=== PATIENT | female | born 1935 | race Caucasian/White ===

== ENCOUNTER 2019-11-29 09:36 | Day surgery (SDC) | payer MEDICARE ==
[2019-11-28 16:37] LABS: BASOPHILS % (AUTO) 0.3 % (0.0-5.0); EOSINOPHILS % (AUTO) 1.6 % (0.0-8.0); LYMPHOCYTES % (AUTO) 41.8 % (21.0-51.0); MEAN CORPUSCULAR HEMOGLOBIN 29.8 pg (27.0-33.0); MEAN CORPUSCULAR HGB CONC 30.8 g/dL (32.0-36.0); MEAN CORPUSCULAR VOLUME 96.7 fL (79-99); MONOCYTES % (AUTO) 4.7 % (3.0-13.0); NEUTROPHILS % (AUTO) 51.3 % (40.0-77.0); PLATELET COUNT (AUTO) 301 K/uL (130-400); RED BLOOD CELL COUNT(AUTO) 3.93 MIL/uL (4.00-5.50); RED CELL DISTRIBUTION WIDTH 13.3 % (11.0-15.5); WHITE BLOOD COUNT (AUTO) 7.9 K/uL (4.8-10.8)
[2019-11-28 16:49] VITALS: BP 112/58
[2019-11-28 16:56] LABS: CREATININE 1.5 mg/dL (0.5-1.5); POTASSIUM 4.8 mmol/L (3.5-5.1)
--- NOTE | 2019-11-28 20:35 | NUR ---
CALLED DR. SILVIA V AND HE IS AWARE OF ABNORMAL LABS AND X-RAY NO NEW ORDERS AT THIS TIME. OK TO PROCEED WITH PROCEDURE.
[2019-11-29] VITALS (23 sets, daily range): BP systolic 88–120; BP diastolic 41–97
[~2019-11-29] VITALS: Ht 165.1 cm; Wt 70.3 kg
[~2019-11-29 09:36] MED LIST: APIX5TAB PO; BIMA12.5OS OU; FURO20TA4 PO; FURO40TA5 PO; GABA600T10 PO; IBUP-2784 PO; INSLAN SQ; LEVO75TA10 PO; [UNRECOGNIZED DRUG - CODE] PO
[2019-11-29] MEDS ORDERED: SODIUM CHLORIDE 0.9% 1000ML 1,000 ML IV ONE (10:28)
[2019-11-29] MEDS ORDERED: ROCURONIUM 10MG/1ML SYR 10 MG/ML ML ONE (12:37)
[2019-11-29] MEDS ORDERED: PROPOFOL 10 MG/ML 20ML VIAL IV ONE (12:37)
[2019-11-29] MEDS ORDERED: LIDOCAINE PF 2% 5ML ABBOJECT ONE (12:37)
[2019-11-29] MEDS ORDERED: FENTANYL CITRATE PF 50 MCG/1 ML 5ML AMP IV ONE (12:38)
[2019-11-29] MEDS ORDERED: ROPIVACAINE 0.5% 5MG/ML 30ML IJ ONE (12:44)
[2019-11-29] MEDS: CLINDAMYCIN 900 MG/D5% WATER 50 ML IV PRN ×2 (13:00→13:32)
[2019-11-29] MEDS ORDERED: EPHEDRINE SULFATE 50 MG/ML AMPULE ONE (13:04)
[2019-11-29] MEDS ORDERED: NEOSTIGMINE 5MG/5ML SYR IV ONE (13:42)
[2019-11-29] MEDS ORDERED: ONDANSETRON HCL 4 MG/2 ML VIAL ONE (13:42)
[2019-11-29] MEDS ORDERED: GLYCOPYRROLATE 1 MG/5 ML SYRINGE ONE (13:42)
[2019-11-29] MEDS ORDERED: DEXAMETHASONE SOD PHOSPHATE 10MG/ML 1ML VIAL ONE (13:42)
[2019-11-29] MEDS ORDERED: SUGAMMADEX SODIUM 200 MG/2 ML VIAL IV ONE (14:05)
--- NOTE | 2019-11-29 15:40 | NUR ---
PT ARRIVED TO THE UNIT WITH BRUISE TO LEFT EYELID AND RIGHT EYELID HOWEVER MORE PROMINENT TO THE LEFT EYES, PER PATIENT FAMILY SHE DID NOT HAVE IT WHEN SHE CAME TO HOSPITAL, PER FAMILY STAFF ADVISED HER THAT SHE GOT IT WHEN THEY TAPED HER EYE FOR PROCEDURE. ADVISED NURSE [employer] GILBERT LINN
== END 2019-11-29 16:47 | disposition home or self-care (01) ==
LOC: DAH 09:36
PROVIDERS: ATTEND Orthopaedic Surgery
DX: S52.021A Displaced fracture of olecranon process without intraarticular extension of right ulna, initial encounter for closed fracture (principal); M81.8 Other osteoporosis without current pathological fracture; Z88.2 Allergy status to sulfonamides; E11.9 Type 2 diabetes mellitus without complications; E03.9 Hypothyroidism, unspecified; I48.91 Unspecified atrial fibrillation; I45.10 Unspecified right bundle-branch block; Z79.899 Other long term (current) drug therapy; Z72.89 Other problems related to lifestyle; Z83.3 Family history of diabetes mellitus; Z90.49 Acquired absence of other specified parts of digestive tract; Z98.41 Cataract extraction status, right eye; Z98.42 Cataract extraction status, left eye; X58.XXXA Exposure to other specified factors, initial encounter; Y93.89 Activity, other specified; Y92.89 Other specified places as the place of occurrence of the external cause; Y99.9 Unspecified external cause status
CPT/HCPCS: 24685; 36415; 64415; 71045; 73080; 76942; 80048; 82948 ×2; 85025; 93005; A4215; A4221; A4222; A4223; A4649 ×4; A4663; A4930; A6223; A6260; C1713 ×4; C1776; J1100; J2001; J2405; J2704; J2710; J2795; J3010; J3490 ×3; J7030 ×2; Q4050

== ENCOUNTER 2020-11-29 10:52 | Inpatient (IN) | payer MEDICARE ==
[~2020-11-29] VITALS: Ht 165.1 cm; Wt 73.0 kg
[~2020-11-29 10:52] MED LIST changes: +DILT-116 PO; -[UNRECOGNIZED DRUG - CODE] PO
[2020-11-29] MEDS ORDERED: TETANUS/DIPHTHERIA TOXOID [ADULT] 0.5 ML VIAL IM ONE (12:41)
[2020-11-29 12:47] LABS: BASOPHILS % (AUTO) 0.2 % (0.0-5.0); EOSINOPHILS % (AUTO) 0.3 % (0.0-8.0); LYMPHOCYTES % (AUTO) 24.8 % (21.0-51.0); MEAN CORPUSCULAR HEMOGLOBIN 30.7 pg (27.0-33.0); MEAN CORPUSCULAR HGB CONC 31.5 g/dL (32.0-36.0); MEAN CORPUSCULAR VOLUME 97.6 fL (79-99); MONOCYTES % (AUTO) 4.6 % (3.0-13.0); NEUTROPHILS % (AUTO) 69.9 % (40.0-77.0); PLATELET COUNT (AUTO) 173 K/uL (130-400); RED CELL DISTRIBUTION WIDTH 14.1 % (11.0-15.5); WHITE BLOOD COUNT (AUTO) 10.6 K/uL (4.8-10.8)
[2020-11-29 12:51] LABS: CREATININE 1.7 mg/dL (0.5-1.5); POTASSIUM 4.5 mmol/L (3.5-5.1)
[2020-11-29 12:55] LABS: INR 0.94 (0.85-1.15); PROTHROMBIN TIME 10.3 SEC (9.6-11.6)
[2020-11-29 12:56] LABS: ALBUMIN 3.5 g/dL (3.5-5.0); BILIRUBIN,TOTAL 0.8 mg/dL (0.2-1.0); PARTIAL THROMBOPLASTIN TIME 22.1 SEC (26.3-35.5); TOTAL PROTEIN, SERUM 6.9 g/dL (6.0-8.3)
[2020-11-29] MEDS ORDERED: AZITHROMYCIN 500MG+NS 250ML 250 ML IV ONE (13:01)
[2020-11-29] MEDS ORDERED: CEFTRIAXONE 1G VIAL ONE (13:02)
[2020-11-29] MEDS: 0.9%NACL 1000ML 1,000 ML IV SCH ×2 (13:15→21:39)
[2020-11-29] MEDS ORDERED: POTASSIUM CHLORIDE 20MEQ/100ML 100 ML IV PRN ×2 (13:15)
[2020-11-29] MEDS ORDERED: KCL 20 MEQ ERTAB PO PRN (13:15)
[2020-11-29] MEDS ORDERED: POTASSIUM CHLORIDE 10% ELIXIR 20 MEQ/15 ML UDCUP PO PRN (13:15)
[2020-11-29] MEDS ORDERED: MAGNESIUM 2GM PREMIX 50ML 50 ML IV PRN (13:15)
[2020-11-29] MEDS: FAMOTIDINE 20MG VIAL IV SCH ×2 (13:15→21:40)
[2020-11-29] MEDS ORDERED: DEXTROSE 50%-WATER 50 ML DISP.SYRIN IV PRN (13:15)
[2020-11-29] MEDS: ENOXAPARIN SODIUM 40 MG/0.4 ML SYRINGE SQ SCH (13:15)
[2020-11-29] MEDS ORDERED: GLUCAGON 1MG KIT 1 MG ML IM PRN (13:15)
[2020-11-29] MEDS ORDERED: LIDOCAINE HCL-MPF 1% 2ML VIAL IV PRN ×2 (13:15)
[2020-11-29] MEDS ORDERED: ENOXAPARIN SODIUM 40 MG/0.4 ML SYRINGE SQ ONE (14:19)
[2020-11-29] MEDS ORDERED: 0.9%NACL 1000ML 1,000 ML IV ONE (14:20)
[2020-11-29] MEDS ORDERED: FAMOTIDINE 20MG VIAL IV ONE (14:20)
[2020-11-29 19:13] LABS: APPEARANCE,URINE Clear (CLEAR); BILIRUBIN,URINE Negative (NEGATIVE); COLOR,URINE Yellow (YELLOW); GLUCOSE, URINE (UA) >=1000 mg/dL (NEGATIVE); KETONES,URINE Trace mg/dL (NEGATIVE); LEUKOCYTE ESTERASE ,URINE Negative (NEGATIVE); NITRATE,URINE Negative (NEGATIVE); OCCULT BLOOD,URINE Negative (NEGATIVE); PH,URINE 5.5 (5.0-8.0); PROTEIN,URINE Negative (NEGATIVE)
[2020-11-29 19:19] LABS: BACTERIA,URINE Rare /HPF (None Seen); RBC,URINE 0-1 /HPF (0-1); WBC,URINE 0-1 /HPF (0-1)
[2020-11-29 19:20] LABS: SQUAMOUS EPITHELIAL CELL,UR Rare /HPF (0-2)
[2020-11-29 22:06] VITALS: BP 115/52
[2020-11-30 00:24] VITALS: BP 120/57
[2020-11-30] MEDS ORDERED: INSLAN SQ (02:31)
[2020-11-30] MEDS ORDERED: ACET1TAB25 PO (02:31)
[2020-11-30 04:24] VITALS: BP 117/50
[2020-11-30 05:09] LABS: HEMATOCRIT 33.3 % (36-48); MEAN CORPUSCULAR HEMOGLOBIN 30.3 pg (27.0-33.0); MEAN CORPUSCULAR HGB CONC 30.9 g/dL (32.0-36.0); MEAN CORPUSCULAR VOLUME 97.9 fL (79-99); RED BLOOD CELL COUNT(AUTO) 3.4 MIL/uL (4.00-5.50); RED CELL DISTRIBUTION WIDTH 14.2 % (11.0-15.5); WHITE BLOOD COUNT (AUTO) 7.8 K/uL (4.8-10.8)
[2020-11-30 05:32] LABS: PROTHROMBIN TIME 10.9 SEC (9.6-11.6)
[2020-11-30 05:42] LABS: CREATINE KINASE, TOTAL 217 U/L (21-232); MYOGLOBIN 286 ng/mL (10-92); TROPONIN I < 0.04 ng/mL (0.00-0.06)
[2020-11-30 06:03] LABS: CARBON DIOXIDE 26 mmol/L (21-32); CHLORIDE 105 mmol/L (101-111); CREATININE 1.2 mg/dL (0.5-1.5); GLOMERULAR FILTR. RATE CALC 45 mL/min (>60); GLUCOSE,RANDOM 215 mg/dL (70-105); POTASSIUM 3.8 mmol/L (3.5-5.1); SODIUM SERUM 142 mmol/L (136-145); THYROID STIMULATING HORMONE 0.74 uIU/mL (0.36-3.74); UREA NITROGEN, BLOOD 25 mg/dL (7-18)
[2020-11-30] MEDS: MORPHINE 2 MG SYG IVP PRN ×2 (07:02→14:40)
[2020-11-30 08:04] VITALS: BP 103/50
[2020-11-30] MEDS: FAMOTIDINE 20MG VIAL IV SCH ×2 (08:24→20:30)
[2020-11-30] MEDS: ENOXAPARIN SODIUM 40 MG/0.4 ML SYRINGE SQ SCH (08:25)
[2020-11-30 10:59] VITALS: BP 112/70
[2020-11-30 16:20] VITALS: BP 101/56
[2020-11-30] MEDS: 0.9%NACL 1000ML 1,000 ML IV SCH (16:46)
[2020-11-30 19:33] VITALS: BP 106/47
[2020-11-30] MEDS ORDERED: INSULIN HUMULIN R 100 UNIT/ML 3ML ONE (21:22)
[2020-11-30] MEDS: INSULIN HUMULIN R 100 UNIT/ML 3ML SQ SCH (21:30)
[2020-11-30] MEDS ORDERED: DEXTROSE 50%-WATER 50 ML DISP.SYRIN IV PRN (21:30)
[2020-11-30] MEDS ORDERED: GLUCAGON 1MG KIT 1 MG ML IM PRN (21:30)
[2020-12-01] VITALS (7 sets, daily range): BP systolic 94–111; BP diastolic 45–57
[2020-12-01] MEDS: 0.9%NACL 1000ML 1,000 ML IV SCH ×2 (06:25→18:37)
[2020-12-01] MEDS: INSULIN HUMULIN R 100 UNIT/ML 3ML SQ SCH ×4 (06:27→21:17)
[2020-12-01 06:50] LABS: HEMATOCRIT 34.7 % (36-48); MEAN CORPUSCULAR HEMOGLOBIN 30.7 pg (27.0-33.0); MEAN CORPUSCULAR HGB CONC 31.1 g/dL (32.0-36.0); MEAN CORPUSCULAR VOLUME 98.6 fL (79-99); RED BLOOD CELL COUNT(AUTO) 3.52 MIL/uL (4.00-5.50); WHITE BLOOD COUNT (AUTO) 6.5 K/uL (4.8-10.8)
[2020-12-01 07:08] LABS: CREATININE 1.3 mg/dL (0.5-1.5); MAGNESIUM 2.1 mg/dL (1.80-2.40)
[2020-12-01] MEDS: ENOXAPARIN SODIUM 40 MG/0.4 ML SYRINGE SQ SCH (09:00)
[2020-12-01] MEDS: FAMOTIDINE 20MG VIAL IV SCH ×2 (09:33→21:16)
[2020-12-01] MEDS: MORPHINE 2 MG SYG IVP PRN (18:18)
[2020-12-02] VITALS (30 sets, daily range): BP systolic 79–126; BP diastolic 40–88
[2020-12-02 06:17] LABS: HEMATOCRIT 34.4 % (36-48); MEAN CORPUSCULAR HEMOGLOBIN 30.3 pg (27.0-33.0); MEAN CORPUSCULAR HGB CONC 31.4 g/dL (32.0-36.0); MEAN CORPUSCULAR VOLUME 96.6 fL (79-99); RED BLOOD CELL COUNT(AUTO) 3.56 MIL/uL (4.00-5.50); RED CELL DISTRIBUTION WIDTH 14.2 % (11.0-15.5); WHITE BLOOD COUNT (AUTO) 7.1 K/uL (4.8-10.8)
[2020-12-02] MEDS: INSULIN HUMULIN R 100 UNIT/ML 3ML SQ SCH ×4 (06:24→21:00)
[2020-12-02 06:29] LABS: CREATININE 1.3 mg/dL (0.5-1.5); POTASSIUM 3.3 mmol/L (3.5-5.1)
[2020-12-02] MEDS: 0.9%NACL 1000ML 1,000 ML IV SCH ×2 (08:33→20:50)
[2020-12-02] MEDS: ENOXAPARIN SODIUM 40 MG/0.4 ML SYRINGE SQ SCH (09:00)
[2020-12-02] MEDS: FAMOTIDINE 20MG VIAL IV SCH (09:15)
[2020-12-02] MEDS ORDERED: LIDOCAINE PF 100MG/5ML (2%) SYRINGE 5ML ONE (10:08)
[2020-12-02] MEDS ORDERED: PROPOFOL 10 MG/ML 20ML VIAL IV ONE (10:08)
[2020-12-02] MEDS ORDERED: ONDANSETRON 4MG INJ ONE (10:08)
[2020-12-02] MEDS ORDERED: ROCURONIUM 10MG/1ML SYR 10 MG/ML ML ONE (10:08)
[2020-12-02] MEDS ORDERED: FENTANYL CITRATE PF 50 MCG/1 ML 2ML VIAL ONE (10:09)
[2020-12-02] MEDS ORDERED: VANCOMYCIN 1G/250ML KIT 250 ML IV ONE (10:10)
[2020-12-02] MEDS ORDERED: ROPIVACAINE 0.5% 5MG/ML 30ML IJ ONE (10:11)
[2020-12-02] MEDS ORDERED: NEOSTIGMINE 5MG/5ML SYR IV ONE (11:23)
[2020-12-02] MEDS ORDERED: GLYCOPYRROLATE 1 MG/5 ML SYRINGE ONE (11:23)
[2020-12-02] MEDS ORDERED: ESMOLOL HCL 10 MG/ML 10 ML VIAL ONE (11:30)
[2020-12-02] MEDS ORDERED: MORPHINE 2 MG SYG ONE (12:10)
[2020-12-02] MEDS ORDERED: 0.9% NACL 500ML IV.SOLN 500 ML IV SCH (16:45)
[2020-12-02] MEDS ORDERED: DILTIAZEM 180MG SR CAP PO ONE (16:47)
[2020-12-02 17:32] LABS: HEMATOCRIT 37.3 % (36-48)
[2020-12-03] VITALS: BP 102/62
[2020-12-03 03:11] VITALS: BP 104/45
[2020-12-03 04:11] LABS: HEMATOCRIT 32.5 % (36-48); MEAN CORPUSCULAR HEMOGLOBIN 30.9 pg (27.0-33.0); MEAN CORPUSCULAR HGB CONC 31.4 g/dL (32.0-36.0); MEAN CORPUSCULAR VOLUME 98.5 fL (79-99); RED BLOOD CELL COUNT(AUTO) 3.3 MIL/uL (4.00-5.50); RED CELL DISTRIBUTION WIDTH 14.1 % (11.0-15.5); WHITE BLOOD COUNT (AUTO) 6.7 K/uL (4.8-10.8)
[2020-12-03 04:32] LABS: CREATININE 1.3 mg/dL (0.5-1.5); POTASSIUM 4.4 mmol/L (3.5-5.1)
[2020-12-03] MEDS: LEVOTHYROXINE 75 MCG TABLET PO SCH (05:46)
[2020-12-03] MEDS: 0.9%NACL 1000ML 1,000 ML IV SCH ×2 (05:46→17:39)
[2020-12-03] MEDS: INSULIN HUMULIN R 100 UNIT/ML 3ML SQ SCH ×4 (06:07→21:28)
[2020-12-03 08:00] VITALS: BP 106/57
[2020-12-03] MEDS ORDERED: FAMOTIDINE 20MG VIAL IV SCH (09:00)
[2020-12-03] MEDS: ENOXAPARIN SODIUM 40 MG/0.4 ML SYRINGE SQ SCH (10:38)
[2020-12-03] MEDS: DILTIAZEM 180MG SR CAP PO SCH (10:38)
[2020-12-03] MEDS: PANTOPRAZOLE 40 MG TAB DR PO SCH (10:38)
[2020-12-03 11:54] VITALS: BP 128/82
[2020-12-03] MEDS: MORPHINE 2 MG SYG IVP PRN (13:35)
[2020-12-03 16:00] VITALS: BP 92/43
[2020-12-03 20:00] VITALS: BP 102/59
[2020-12-04] VITALS: BP 91/51
[2020-12-04] MEDS: 0.9%NACL 1000ML 1,000 ML IV SCH ×2 (02:23→12:15)
[2020-12-04 03:56] VITALS: BP 103/54
[2020-12-04 04:15] LABS: HEMATOCRIT 31.1 % (36-48); MEAN CORPUSCULAR HEMOGLOBIN 30.3 pg (27.0-33.0); MEAN CORPUSCULAR HGB CONC 30.2 g/dL (32.0-36.0); MEAN CORPUSCULAR VOLUME 100.3 fL (79-99); PLATELET COUNT (AUTO) 178 K/uL (130-400); WHITE BLOOD COUNT (AUTO) 7.9 K/uL (4.8-10.8)
[2020-12-04 04:32] LABS: CREATININE 1.6 mg/dL (0.5-1.5); POTASSIUM 4.3 mmol/L (3.5-5.1)
[2020-12-04 04:49] LABS: PLATELET MORPHOLOGY PLT CLUMPS PRESENT
[2020-12-04] MEDS: INSULIN HUMULIN R 100 UNIT/ML 3ML SQ SCH ×3 (05:49→21:10)
[2020-12-04] MEDS: LEVOTHYROXINE 75 MCG TABLET PO SCH (05:52)
[2020-12-04 08:00] VITALS: BP 112/49
[2020-12-04] MEDS: PANTOPRAZOLE 40 MG TAB DR PO SCH (10:13)
[2020-12-04] MEDS: DILTIAZEM 180MG SR CAP PO SCH (10:14)
[2020-12-04] MEDS: ENOXAPARIN SODIUM 40 MG/0.4 ML SYRINGE SQ SCH (10:15)
[2020-12-04 12:00] VITALS: BP 112/47
[2020-12-04 16:00] VITALS: BP 99/92
[2020-12-04 20:00] VITALS: BP 104/50
[2020-12-04] MEDS ORDERED: NYSTATIN 15 GM POWDER TP SCH (21:00)
== END 2020-12-04 21:20 | DRG 494 ==
LOC: EDH 10:52 → EDHIP 13:19 → 3AH 20:49 → 4CH 12-02 18:35
PROVIDERS: ADMIT Internal Medicine; ATTEND Internal Medicine
PROC: 3E0234Z Introduction of Serum, Toxoid and Vaccine into Muscle, Percutaneous Approach (ICD-10-PCS; 2020-11-29)
PROC: 0QSJ04Z Reposition Right Fibula with Internal Fixation Device, Open Approach (ICD-10-PCS; 2020-12-02)
PROC: 0QSG04Z Reposition Right Tibia with Internal Fixation Device, Open Approach (ICD-10-PCS; principal; 2020-12-02 10:11)
PROC: 3E0T3BZ Introduction of Anesthetic Agent into Peripheral Nerves and Plexi, Percutaneous Approach (ICD-10-PCS; 2020-12-02 10:11)
PROC: 3E0T33Z Introduction of Anti-inflammatory into Peripheral Nerves and Plexi, Percutaneous Approach (ICD-10-PCS; 2020-12-02 10:11)
DX: S82.851A Displaced trimalleolar fracture of right lower leg, initial encounter for closed fracture (principal); I10 Essential (primary) hypertension; Z66 Do not resuscitate; N28.9 Disorder of kidney and ureter, unspecified; E03.9 Hypothyroidism, unspecified; E11.9 Type 2 diabetes mellitus without complications; D69.6 Thrombocytopenia, unspecified; F03.90 Unspecified dementia, unspecified severity, without behavioral disturbance, psychotic disturbance, mood disturbance, and anxiety; I48.91 Unspecified atrial fibrillation; Z20.822 Contact with and (suspected) exposure to COVID-19; W01.0XXA Fall on same level from slipping, tripping and stumbling without subsequent striking against object, initial encounter; Y93.89 Activity, other specified; Y92.89 Other specified places as the place of occurrence of the external cause; Y99.8 Other external cause status; Z91.81 History of falling; Z79.01 Long term (current) use of anticoagulants; Z88.2 Allergy status to sulfonamides; Z88.0 Allergy status to penicillin; Z23 Encounter for immunization; Z88.5 Allergy status to narcotic agent; Z83.3 Family history of diabetes mellitus; Z82.0 Family history of epilepsy and other diseases of the nervous system; Z82.5 Family history of asthma and other chronic lower respiratory diseases; Z82.3 Family history of stroke; Z82.49 Family history of ischemic heart disease and other diseases of the circulatory system; Z79.890 Hormone replacement therapy; Z79.4 Long term (current) use of insulin; Z79.899 Other long term (current) drug therapy
CPT/HCPCS: 36415; 70450; 71045; 72125; 73090; 73610; 80048; 80053; 81001; 82550; 82948; 83735; 83874; 84443; 84484; 85014; 85018; 85025; 85027; 85610; 85730; 87040; 87426; 90714; 92610; 93005; 97039; 99291; G0378; J0456; J0696; J1650; J1815; J2001; J2405; J2704; J2710; J2795; J3010; J3370; J3490; J7030; J7120; U0003

== ENCOUNTER 2020-12-26 22:27 | Emergency (ER) | payer MEDICARE ==
[~2020-12-26 22:27] MED LIST changes: +ACET1TAB25 PO; -BIMA12.5OS OU; -IBUP-2784 PO
[2020-12-26 22:55] LABS: BASOPHILS % (AUTO) 0.5 % (0.0-5.0); EOSINOPHILS % (AUTO) 2.7 % (0.0-8.0); HEMATOCRIT 38.7 % (36-48); LYMPHOCYTES % (AUTO) 44.7 % (21.0-51.0); MEAN CORPUSCULAR HGB CONC 30.2 g/dL (32.0-36.0); MEAN CORPUSCULAR VOLUME 99.2 fL (79-99); MONOCYTES % (AUTO) 6.1 % (3.0-13.0); NEUTROPHILS % (AUTO) 45.5 % (40.0-77.0); PLATELET COUNT (AUTO) 262 K/uL (130-400); RED CELL DISTRIBUTION WIDTH 15.9 % (11.0-15.5); WHITE BLOOD COUNT (AUTO) 8.2 K/uL (4.8-10.8)
[2020-12-26] MEDS ORDERED: DEXTROSE 50%-WATER 50 ML DISP.SYRIN IV ONE (22:55)
[2020-12-26 23:04] LABS: POTASSIUM 3.7 mmol/L (3.5-5.1)
[2020-12-26 23:09] LABS: ALBUMIN 2.5 g/dL (3.5-5.0); BILIRUBIN,TOTAL 0.3 mg/dL (0.2-1.0); TOTAL PROTEIN, SERUM 5.9 g/dL (6.0-8.3)
[2020-12-26 23:11] LABS: PROTHROMBIN TIME 10.9 SEC (9.6-11.6)
[2020-12-26 23:13] LABS: PARTIAL THROMBOPLASTIN TIME 30.8 SEC (26.3-35.5)
[2020-12-27 00:46] LABS: APPEARANCE,URINE Cloudy (CLEAR); BILIRUBIN,URINE Negative (NEGATIVE); COLOR,URINE Yellow (YELLOW); GLUCOSE, URINE (UA) 500 mg/dL (NEGATIVE); KETONES,URINE Trace mg/dL (NEGATIVE); LEUKOCYTE ESTERASE ,URINE Small (NEGATIVE); NITRATE,URINE Negative (NEGATIVE); OCCULT BLOOD,URINE Moderate (NEGATIVE); PROTEIN,URINE POS 2+ mg/dL (NEGATIVE)
[2020-12-27 01:00] LABS: BACTERIA,URINE Moderate /HPF (None Seen)
[2020-12-27 01:03] LABS: SQUAMOUS EPITHELIAL CELL,UR 0-2 /HPF (0-2)
== END 2020-12-27 03:45 | disposition home or self-care (01) ==
LOC: EDH 22:27
DX: E11.649 Type 2 diabetes mellitus with hypoglycemia without coma (principal); I48.91 Unspecified atrial fibrillation; Z88.0 Allergy status to penicillin; Z88.2 Allergy status to sulfonamides
CPT/HCPCS: 36415; 51702; 80053; 81001; 82948 ×3; 84484; 85025; 85610; 85730; 87077; 87088; 87186; 96374; 99284; J7070